=== PATIENT | female | born 1990 | race Caucasian/White ===

== ENCOUNTER 2017-05-21 20:57 | Emergency (ER) | payer MEDICAID ==
[~2017-05-21] VITALS: Ht 167.6 cm; Wt 75.7 kg
[2017-05-21 21:28] VITALS: Ht 167.6 cm; Wt 75.7 kg
[2017-05-21 23:22] LABS: BASOPHIL % 0.5 % (0-2); PLATELET COUNT 275 x10^3mcL (130-400); RED CELL DISTRIBUTION WIDTH 12.9 % (11.5-14.5)
[2017-05-21 23:31] LABS: CALCIUM 8.9 mg/dL (8.5-10.1); CARBON DIOXIDE 28.2 mmol/L (21-32); CHLORIDE SERUM 100 mmol/L (98-107); CREATININE SERUM 0.8 mg/dL (0.6-1.0); GFR1 > 60 mL/min; GLUCOSE SERUM 359 mg/dL (74-106); POTASSIUM SERUM 3.7 mmol/L (3.5-5.1); SODIUM SERUM 136 mmol/L (136-145)
[2017-05-21 23:44] LABS: ALKALINE PHOSPHATASE 114 U/L (46-116); ALT/SGPT 59 U/L (14-59); AST/SGOT 17 U/L (15-37); BILIRUBIN TOTAL 0.3 mg/dL (0.20-1.00); TOTAL PROTEIN, SERUM 8.1 g/dL (6.4-8.2)
[2017-05-22 02:12] VITALS: BP 111/72
== END 2017-05-22 02:13 | disposition home or self-care (01) ==
LOC: ED 20:57
PROVIDERS: Emergency Medicine
DX: R51 Headache (principal); E11.9 Type 2 diabetes mellitus without complications; Z90.49 Acquired absence of other specified parts of digestive tract
CPT/HCPCS: 82962; J1885; J7030

== ENCOUNTER 2017-09-04 19:55 | Emergency (ER) | payer MEDICAID ==
[~2017-09-04] VITALS: Ht 160 cm; Wt 73.5 kg
[2017-09-04 20:17] VITALS: Ht 160 cm; Wt 73.5 kg
[2017-09-04 21:40] LABS: CALCIUM 8.4 mg/dL (8.5-10.1); CARBON DIOXIDE 24.3 mmol/L (21-32); CHLORIDE SERUM 98 mmol/L (98-107); CREATININE SERUM 0.6 mg/dL (0.6-1.0); GFR1 > 60 mL/min; GLUCOSE SERUM 283 mg/dL (74-106); POTASSIUM SERUM 3.7 mmol/L (3.5-5.1); SODIUM SERUM 134 mmol/L (136-145)
[2017-09-04 21:42] LABS: ALBUMIN 4.1 g/dL (3.4-5.0); ALKALINE PHOSPHATASE 125 U/L (46-116); ALT/SGPT 38 U/L (14-59); AMYLASE 71 U/L (25-115); AST/SGOT 12 U/L (15-37); BILIRUBIN TOTAL 0.4 mg/dL (0.20-1.00); LIPASE 244 IU/L (73-393)
[2017-09-04 21:44] LABS: TOTAL PROTEIN, SERUM 8.5 g/dL (6.4-8.2)
[2017-09-04 22:05] VITALS: BP 126/86
== END 2017-09-04 22:05 | disposition home or self-care (01) ==
LOC: ED 19:55
PROVIDERS: Emergency Medicine
DX: R10.13 Epigastric pain (principal); E11.9 Type 2 diabetes mellitus without complications; Z90.49 Acquired absence of other specified parts of digestive tract
CPT/HCPCS: J1885

== ENCOUNTER 2020-02-11 15:27 | Emergency (ER) | payer MEDICAID ==
[~2020-02-11] VITALS: Ht 162.6 cm; Wt 70.3 kg
[2020-02-11 16:43] VITALS: BP 143/86; Ht 162.6 cm; Wt 70.3 kg
== END 2020-02-11 18:00 | disposition left against medical advice (07) ==
LOC: ED 15:27
DX: Z53.21 Procedure and treatment not carried out due to patient leaving prior to being seen by health care provider (principal)